=== PATIENT | female | born 1990 | race Caucasian/White ===

== ENCOUNTER 2020-02-20 09:32 | Outpatient (CLI) | payer OTHER, SELFPAY ==
[2020-02-22 10:45] LABS: TB Skin Test Erythema 0 mm; TB Skin Test Induration 0 mm (0-10); TB Skin Test Interpretation Negative (Negative); TB Skin Test Site Left Arm
== END 2020-02-20 09:33 | disposition home or self-care (01) ==
LOC: CHSLAB 09:36
PROVIDERS: PCP Nurse Practitioner Family; Visit Provider Nurse Practitioner Family
DX: Z11.1 Encounter for screening for respiratory tuberculosis (principal)
CPT/HCPCS: 36415; 86580

== ENCOUNTER 2021-03-06 10:54 | Outpatient (CLI) | payer OTHER, SELFPAY ==
[2021-03-09 10:48] LABS: TB Skin Test Erythema 0 mm; TB Skin Test Induration 0 mm (0-10); TB Skin Test Interpretation Negative (Negative); TB Skin Test Site Right Arm
== END 2021-03-06 10:55 | disposition home or self-care (01) ==
LOC: CHSLAB 10:55
PROVIDERS: PCP Nurse Practitioner Family; Visit Provider Nurse Practitioner Family
DX: Z11.1 Encounter for screening for respiratory tuberculosis (principal)
CPT/HCPCS: 36415; 86580

== ENCOUNTER 2022-11-07 11:59 | Outpatient (CLI) | payer OTHER, SELFPAY ==
[2022-11-07 12:16] LABS: Hematocrit 38.6 % (35.0-49.0); Hemoglobin 12.7 g/dL (12.0-15.0); Mean Corpuscular HGB Conc 32.9 g/dL (32.0-36.0); Mean Corpuscular Hemoglobin 30.9 pg (27.0-31.0); Mean Corpuscular Volume 93.9 fL (78.0-102.0); Mean Platelet Volume 11.3 fl (9.2-11.8); Platelet Count Result 231 K/mm3 (150-420); Red Blood Count 4.11 M/mm3 (4.20-5.40); Red Cell Distribution Width 12.4 % (11.6-14.4); White Blood Count 6.9 K/mm3 (4.8-10.8)
[2022-11-07 12:42] LABS: Alanine Aminotransferase 23 U/L (14-59); Albumin Level 4.5 g/dL (3.4-5.0); Alkaline Phosphatase 46 U/L (46-116); Anion Gap 10 mmol/L (8-16); Aspartate Amino Transferase 21 U/L (15-37); Bilirubin,Total 0.4 mg/dL (0.00-1.00); Blood Urea Nitrogen 18 mg/dL (7-18); Calcium 9.1 mg/dL (8.5-10.1); Carbon Dioxide 27 mmol/L (21-32); Chloride 102 mmol/L (98-108); Estimated Glomerular Filt Rate > 60; Glucose 91 mg/dL (70-99); Osmolality Calculated 289 mOsm/kg (285-295); Sodium 139 mmol/L (136-145); Total Protein 8.6 g/dL (6.4-8.2)
[2022-11-07 13:07] LABS: Troponin I < 4.0 ng/L (0.00-60.4)
[2022-11-07 13:07] LABS: Cholesterol 115 mg/dL (0-200); HDL Direct 54 mg/dL (40-60); LDL Cholesterol Calculated 52 mg/dL (<130); Thyroid Stimulating Hormone 1.73 uIU/mL (0.36-3.74); Triglycerides 43 mg/dL (0-150)
== END 2022-11-07 12:00 | disposition home or self-care (01) ==
PROVIDERS: PCP Family Medicine; Visit Provider Nurse Practitioner Family
DX: R94.31 Abnormal electrocardiogram [ECG] [EKG] (principal); R07.89 Other chest pain
CPT/HCPCS: 36415; 80053; 80061; 84443; 84484; 85027

== ENCOUNTER 2022-12-01 08:35 | Outpatient (CLI) | payer OTHER, SELFPAY ==
--- NOTE | 2022-12-01 08:41 | EST_ITS ---
Patient Info Name: Veena Jacob Age: 32 years : 1990 Gender: Female Ht: 65 in Wt: 170 lbs BSA: 1.90 m2 HR: 77 bpm BP: 97 / 59 mmHg Heart Rhythm: Sinus Rhythm Technical Quality: Excellent Exam Date: 12/01/2022 8:53 AM Exam Location: [facility] Patient Status: Outpatient Admit Date: 12/01/2022 Staff Ordering Physician: Malena Duran APRN Attending Provider: Malena Duran APRN Exercise Technologist: Liya Zhao CRT Exercise Physician: Kelsie Gallagher CEP Exam Type: CA stress test treadmill Study Info Indications ChestPain - A treadmill exercise stress test was performed. History/Risk Factors ChestPain. Summary 1. 1. Negative Antonio exercise stress test for ischemic ST changes by ECG criteria. 2. 2. Good functional capacity, achieving 11.8 METs of workload. 3. 3. Appropriate HR response to exercise. 4. 4. Appropriate HR recovery at 1 minute post exercise. 5. 5. No imaging with stress testing. Protocol: Antonio Stress ECG Details Stage: REST Duration (min): 1 min : 0 sec Speed (mph): 0.0 Grade (%): 0 HR (bpm): 65 SBP (mmHg): --- DBP (mmHg): --- METS: --- Stage: REST Duration (min): 2 min : 14 sec Speed (mph): 0.0 Grade (%): 0 HR (bpm): 73 SBP (mmHg): 97 DBP (mmHg): 59 METS: --- Stage: REST Duration (min): 6 min : 16 sec Speed (mph): 0.0 Grade (%): 0 HR (bpm): 93 SBP (mmHg): 97 DBP (mmHg): 59 METS: --- Stage: STAGE 1 Duration (min): 1 min : 0 sec Speed (mph): 1.7 Grade (%): 10 HR (bpm): 107 SBP (mmHg): 97 DBP (mmHg): 59 METS: --- Stage: STAGE 1 Duration (min): 2 min : 0 sec Speed (mph): 1.7 Grade (%): 10 HR (bpm): 137 SBP (mmHg): 97 DBP (mmHg): 59 METS: --- Stage: STAGE 1 Duration (min): 3 min : 0 sec Speed (mph): 1.7 Grade (%): 10 HR (bpm): 144 SBP (mmHg): 147 DBP (mmHg): 47 METS: --- Stage: STAGE 2 Duration (min): 1 min : 0 sec Speed (mph): 2.5 Grade (%): 12 HR (bpm): 160 SBP (mmHg): 147 DBP (mmHg): 47 METS: --- Stage: STAGE 2 Duration (min): 2 min : 0 sec Speed (mph): 2.5 Grade (%): 12 HR (bpm): 169 SBP (mmHg): 147 DBP (mmHg): 47 METS: --- Stage: STAGE 2 Duration (min): 3 min : 0 sec Speed (mph): 2.5 Grade (%): 12 HR (bpm): 168 SBP (mmHg): 149 DBP (mmHg): 45 METS: --- Stage: STAGE 3 Duration (min): 1 min : 0 sec Speed (mph): 3.4 Grade (%): 14 HR (bpm): 175 SBP (mmHg): 149 DBP (mmHg): 45 METS: --- Stage: STAGE 3 Duration (min): 2 min : 0 sec Speed (mph): 3.4 Grade (%): 14 HR (bpm): 178 SBP (mmHg): 149 DBP (mmHg): 45 METS: --- Stage: STAGE 3 Duration (min): 3 min : 0 sec Speed (mph): 3.4 Grade (%): 14 HR (bpm): 182 SBP (mmHg): 153 DBP (mmHg): 48 METS: --- ---------
== END 2022-12-01 08:36 | disposition home or self-care (01) ==
LOC: CHSCARD 08:37
PROVIDERS: PCP Family Medicine; Visit Provider Nurse Practitioner Family
DX: R94.31 Abnormal electrocardiogram [ECG] [EKG] (principal); R07.89 Other chest pain
CPT/HCPCS: 93017

== ENCOUNTER 2023-08-30 20:58 | Emergency (ER) | payer OTHER, SELFPAY ==
[2023-08-30 21:13] VITALS: BP 124/103; PULSE 134; RESP 22; TEMP 36.2; O2SAT 99
--- NOTE | 2023-08-31 01:31 | PC.NURSE ---
PT STATES SHE IS ALLERGIC TO ANYTHING THAT IS GIVEN FOR MRSA .
[2023-08-31 01:33] VITALS: BP 133/88; PULSE 115; RESP 16; O2SAT 100
--- NOTE | 2023-08-31 02:42 | ED.GENADULT ---
HPI - General Adult General Chief complaint: Back Pain/Injury Stated complaint: tingling down right leg, L5 S1 disc bluge Time Seen by Provider: 08/31/23 01:51 History of Present Illness HPI narrative: Patient is a 32-year-old female who presents emerged from with chief complaint of low back pain and tingling down her right leg. The patient reports he was diagnosed with L5-S1 disc bulge has been started on steroids and also was taking [place]. The patient reports that she has continued to have pain reports that she now has pain shooting down her right buttocks the patient reports no bowel or bladder incontinence denies urinary retention the patient reports that she has not seen a neurosurgeon or been referred to a neurosurgeon Related Data Allergies Allergy/AdvReac Type Severity Reaction Status Date / Time clindamycin Allergy Intermediate unknown Verified 08/31/23 01:31 Sulfonamides Allergy Intermediate unknown Uncoded 08/31/23 01:31 Review of Systems Review of Systems: A 10 system review of systems was completed on the patient and is negative except for what is stated in the HPI. Nursing and ancillary documentation was reviewed. [facility] Past Medical History Medical History MRSA (methicillin resistant Staphylococcus aureus) Social History Social History Smoking status: Never smoker Alcohol intake: current Alcohol use details: social Substance use: never Substance use type: does not use Living arrangements: with family Additional living arrangements comments: has 2 children Occupation/Education: occupation Gender identity (if verbalized by the patient): Female Exam Narrative: GENERAL: Well-appearing, well-nourished, and in no acute distress. HEAD: Normocephalic, atraumatic. EYES: PERRLA and EOMI. ENT: Nares clear, no rhinorrhea or epistaxis. Mucous membranes moist. NECK: Supple. CHEST: Clear to auscultation. No respiratory distress. HEART: Regular rate and rhythm. No murmur heard. Normal peripheral pulses. ABDOMEN: Soft, nontender, nondistended, normal active bowel sounds. EXTREMITIES: Normal range of motion. No edema. SKIN: Warm, dry, no rash. NEURO: No focal deficits. Alert and oriented x3. No saddle anesthesia PSYCH: Normal mood and affect. Course Vital Signs Vital signs: Vital Signs Temperature 36.2 C L 08/30/23 21:13 Pulse Rate 134 H 08/30/23 21:13 Respiratory Rate 22 H 08/30/23 21:13 Blood Pressure 124/103 H 08/30/23 21:13 Pulse Oximetry 99 08/30/23 21:13 Oxygen Delivery Room Air 08/30/23 21:13 Temperature 36.2 C L 08/30/23 21:13 Pulse Rate 84 08/31/23 02:48 Respiratory Rate 16 08/31/23 02:48 Blood Pressure 114/80 08/31/23 02:48 Pulse Oximetry 98 08/31/23 02:48 Oxygen Delivery Room Air 08/30/23 21:13 Medical Decision Making MDM Narrative Medical decision making narrative: The patient is not showing signs of cauda equina syndrome. Patient has a documented MRI from [facility] that showed an L5-S1 falls. The patient is currently on steroids and currently on pain medications and muscle relaxer will be added to her regimen and the patient will be referred to neurosurgery. Vital Signs Vital Signs: Vital Signs Temperature 36.2 C L 08/30/23 21:13 Pulse Rate 134 H 08/30/23 21:13 Respiratory Rate 22 H 08/30/23 21:13 Blood Pressure 124/103 H 08/30/23 21:13 Pulse Oximetry 99 08/30/23 21:13 Oxygen Delivery Room Air 08/30/23 21:13 Temperature 36.2 C L 08/30/23 21:13 Pulse Rate 84 08/31/23 02:48 Respiratory Rate 16 08/31/23 02:48 Blood Pressure 114/80 08/31/23 02:48 Pulse Oximetry 98 08/31/23 02:48 Oxygen Delivery Room Air 08/30/23 21:13 Discharge Plan Discharge Clinical Impression: Herniation of intervertebral disc between L5 and S1, Back pain, Sciatica P
[2023-08-31] MEDS: ORPHENADRINE CITRATE 100 MG TABLET.ER PO (02:46)
[2023-08-31] MEDS: HYDROmorphone HCL INJ (*CRX) 1 MG/ML SYR IM (02:46)
[2023-08-31 02:48] VITALS: BP 114/80; PULSE 84; RESP 16; O2SAT 98
[2023-08-31 04:06] VITALS: PULSE 81; RESP 16; O2SAT 97
== END 2023-08-31 04:07 | disposition home or self-care (01) ==
PROVIDERS: Emergency Provider Emergency Medicine; PCP Nurse Practitioner Family
DX: M51.27 Other intervertebral disc displacement, lumbosacral region (principal); M54.41 Lumbago with sciatica, right side; Z86.14 Personal history of Methicillin resistant Staphylococcus aureus infection
CPT/HCPCS: 96372; 99283; A9270; J1170